=== PATIENT | male | born 1945 | race Caucasian/White ===

== ENCOUNTER 2020-12-01 09:53 | Outpatient (CLI) | payer MEDICARE, SELFPAY ==
--- NOTE | 2020-12-01 13:44 | WPDPFTINT ---
PFT Procedure Performed PFT Procedure Performed Spirometry with Pre/Post Bronchodilator Plethysmography (Lung Vol) Diffusing Cap (DLCO) Flow Vol Loop PFT Interpretation This is a pulmonary function test with pre and post-bronchodilator spirometry, plethysmography and diffusing capacity. The test was performed and results interpreted in accordance with the 2019 and 2005 ATS/ERS Task Force guidelines respectively using the Global Lung Function Initiative-2012 reference equations. Patient demonstrated good effort and cooperation. Reproducibility criteria were met. The quality of the pre bronchodilator spirometry maneuver was Grade A and post bronchodilator spirometry maneuver was Grade A. Findings: Spirometry: The contour of the inspiratory and expiratory flow tracing are normal. The pre bronchodilator FVC is 3.08 L, 88% predicted. The pre bronchodilator FEV1 is 2.16 L, 82% predicted. The FEV1: FVC ratio 70%. The post bronchodilator FVC is 3.13 L, representing a 2% increase. The post bronchodilator FEV1 is 2.18 L, representing 1% increase. Plethysmography: The total lung capacity is 6.04 L, 96% predicted. The functional residual capacity is 3.55 L, 107% predicted. The residual volume is 2.96 L, 124% predicted. Diffusing capacity: The absolute diffusion capacity 7.0, 31% predicted. The diffusing capacity corrected for alveolar volume is 1.53, 39% predicted. In comparison to previous pulmonary function test in our laboratory on 12/31/2018 the post bronchodilator FVC is unchanged from 3.06 L to 3.13 L. The post bronchodilator FEV1 is unchanged from 2.21 L to 2.18 L. The total lung capacity is unchanged from 5.92 L to 6.04 L. The functional residual capacity is unchanged from 3.83 L to 3.55 L. The residual volume is unchanged from 2.58 L to 2.96 L. The absolute diffusion capacity has decreased from 8.9 to 7.0. The diffusing capacity corrected for alveolar volume has decreased from 1.85 to 1.53 Impression: The spirometry is normal without evidence of an obstructive abnormality. There is no significant improvement after inhaling a single dose of albuterol. The lung volumes are normal. The absolute diffusing capacity is severely decreased and remains severely decreased when corrected for alveolar volume. in comparison to the previous pulmonary function test on 12/31/2018 there has been a greater than anticipated time dependent decrease in the absolute diffusion capacity and the diffusing capacity corrected for alveolar volume with no change in the post bronchodilator FVC, post bronchodilator FEV1, total lung capacity, functional residual capacity and residual volume. Clinical correlation is recommended. There are no prior studies for comparison
== END 2020-12-01 09:54 | disposition home or self-care (01) ==
LOC: ANHPFT 09:57
PROVIDERS: PCP Family Medicine; Visit Provider Nurse Practitioner Family
DX: J84.112 Idiopathic pulmonary fibrosis (principal)
CPT/HCPCS: 94060; 94726; 94729

== ENCOUNTER 2021-07-21 07:46 | Outpatient (CLI) | payer MEDICARE, SELFPAY | END 2021-07-21 07:47 | disposition home or self-care (01) | LOC: ANHAUDIO 07:48 | PROVIDERS: PCP Family Medicine; Visit Provider Otolaryngology | DX: R42 Dizziness and giddiness (principal) | CPT/HCPCS: 92537; 92540; 92546; 92567 ==